=== PATIENT | female | born 1990 | race Caucasian/White ===

== ENCOUNTER 2017-06-17 13:41 | Emergency (ER) | END 2017-06-17 18:04 | disposition home or self-care (01) ==

== ENCOUNTER 2017-10-11 13:22 | Outpatient (CLI) | END 2017-10-11 15:10 | disposition home or self-care (01) ==

== ENCOUNTER 2017-11-17 05:04 | Inpatient (IN) | END 2017-11-21 15:55 | disposition home or self-care (01) | DRG 765 ==